=== PATIENT | male | born 1940 | race Caucasian/White ===

== ENCOUNTER 2020-04-12 09:44 | Outpatient (CLI) | payer MEDICARE, OTHER ==
--- NOTE | 2020-04-12 16:59 | MRI ---
MRI OF THE PROSTATE WITHOUT AND WITH CONTRAST: History: Elevated PSA. Technique: Multiplanar, multisequence MRI images were obtained of the prostate without and with IV co ntrast. FINDINGS: There is moderate hypertrophy of the central gland consistent with BPH. Prostate volume is estimated at 109 ml. No suspicious low T2 signal lesions are seen in the prostate. No restricted diffusion or low signal s een on the ACD map in the peripheral zone of the prostate. The seminal vesicles are intact. The neurovascular bundles are intact. No pelvic adenopathy is apprec iated. There is scattered diverticula in the colon. There is a low signal intensity filling defect in the posterior aspect of the urinary bladder measuring 10 mm in greatest size which may represent a b ladder calcification. No mural signal abnormality is present. IMPRESSION: 1. PIRADS category 2 - low likelihood of that a clinically significant cancer is present. 2. Likely bladder calcification. 3. Diverticulosis. POS: EAA
== END 2020-04-12 09:45 | disposition home or self-care (01) ==
LOC: TBSIIMAG 09:44
PROVIDERS: ATTEND Urology
DX: R97.20 Elevated prostate specific antigen [PSA] (principal); K57.30 Diverticulosis of large intestine without perforation or abscess without bleeding
CPT/HCPCS: 72197; 82565

== ENCOUNTER 2020-05-16 06:16 | Outpatient (CLI) | payer MEDICARE, OTHER ==
[2020-05-16 10:38] LABS: Bilirubin Neg (Negative); Blood, Urine Negative (Negative); Clarity Clear (Clear); Glucose, Urine (Dipstick) Normal (Negative); Ketone, Urine 5 mg/dL (Negative); Leukocyte Negative (Negative); Nitrite Negative (Negative); Protein, Urine (Dipstick) Negative (Neg-Trace); Specific Gravity, Urine 1.025 (1.002-1.036); Urobilinogen Normal mg/dL (Less than 2)
[2020-05-16 10:40] LABS: Hemoglobin 17.4 g/dL (14.0-18.0); Mean Corpuscular HGB CONC 34.5 G/DL (32.0-36.0); Mean Corpuscular Hemoglobin 32.4 PG (27.0-33.0); Mean Corpuscular Volume 93.9 fl (80.0-100.0); Mean Platelet Volume 9.7 fl (7.4-10.4); Platelet Count 205 10x3/uL (130-400); RBC Distribution Width 12.5 % (11.5-14.5); Red Blood Cell (RBC) Count 5.37 10x6/uL (4.40-5.80); White Blood Cell (WBC) Count 4.1 10x3/uL (4.5-11.0)
[2020-05-16 11:05] LABS: PTT 29.3 sec (22.0-33.0); Prothrombin Time 10.8 sec (9.5-12.1)
[2020-05-16 11:21] LABS: Bacteria/HPF Rare-Few HPF (None Seen); Mucous/LPF 2+ LPF (<2+); RBC/HPF 0-3 HPF (0-3); Squamous Epithelial 0-3 HPF (0-3); WBC/HPF 0-3 HPF (0-3)
[2020-05-16 11:29] LABS: Anion Gap 14 mmol/L (10-20); BUN (Urea Nitrogen) 20 mg/dL (8.4-25.7); Calc. Creatinine Clearance 0 mL/min (70-130); Calcium 9.1 mg/dL (7.8-10.44); Carbon Dioxide 26 mmol/L (23-31); Chloride 103 mmol/L (98-107); Estimated GFR-MDRD 59; Glucose 99 mg/dL (83-110); Potassium 4.6 mmol/L (3.5-5.1); Sodium 138 mmol/L (136-145)
[2020-05-17 14:42] LABS: SARS-CoV-2 MS2 Positive; SARS-CoV-2 N Gene Negative; SARS-CoV-2 S Gene Negative; SARS-CoV-2 by NAA Not Detected (NotDetected); SARS-CoV-2 orf1ab Negative
== END 2020-05-16 06:17 | disposition home or self-care (01) ==
LOC: LABBT 06:16
PROVIDERS: ATTEND Urology
DX: Z01.812 Encounter for preprocedural laboratory examination (principal); N21.0 Calculus in bladder; Z20.828 Contact with and (suspected) exposure to other viral communicable diseases
CPT/HCPCS: 80048; 81001; 85027; 85610; 85730; 87086; U0003; 87635

== ENCOUNTER 2020-05-21 06:04 | Day surgery (SDC) | payer MEDICARE ==
[2020-05-18 13:57] VITALS: BMI 25.3
[2020-05-21] MEDS ORDERED: Fentanyl 100 MCG/2 ML VIAL ONE (06:32)
[2020-05-21] MEDS ORDERED: cefTRIAXone\\ROCEPHIN 2 GM VIAL ONE (06:41)
[2020-05-21] MEDS ORDERED: Sodium Chloride 0.9% 100 ML ONE (06:41)
--- NOTE | 2020-05-21 08:50 | OP ---
DATE OF PROCEDURE: 05/21/2020 PREOPERATIVE DIAGNOSES: Bladder stone. POSTOPERATIVE DIAGNOSIS: Bladder stone. PROCEDURES PERFORMED: 1. Cystoscopy. 2. Laser lithotripsy. 3. Ellik evacuation. ANESTHETIC: General. ESTIMATED BLOOD LOSS: Less than 50. DRAINS PLACED: An 18-Divehi Kuo catheter with 15 mL in the balloon, passed under bladder stone pieces. DESCRIPTION OF PROCEDURE: This is a 79-year-old white male with a large Jackstone in the bladder. He is coming in for laser lithotripsy of a possible stone retrieval. He received IV Rocephin. Lab work was all normal. COVID test was negative. After obtaining written and verbal consent from the patient, he was taken to the operating suite. He was placed in supine position on the treatment table. PlexiPulses were placed on his lower extremities and turned on. He was given a general anesthetic and oral obturator intubation. He was placed in the dorsal lithotomy position. He was sterilely prepped and draped. Cystoscopy was performed with a 22-Divehi sheath, this was well lubricated, passed under direct vision through the male urethra into the urinary bladder with aid of a 30-degree lens, a video camera and monitor. The bladder was examined. The stone was easily visualized. A holmium laser fiber was brought in and used to try to break up the stone as much as we could to disintegrate and leave a few fragments as possible. Once this had been completed and the size of the remaining fragments appeared small enough to Ellik out, we Ellik'd them out. We then reinspected and found no significant bladder stone fragments remaining. At this point, instruments were removed. A Kuo catheter was placed and balloon inflated and hand irrigated with slight pink, but was clear and draining well, sucked up to a leg bag. He was taken out of the dorsal lithotomy position, awakened, extubated, and taken by stretcher to recovery room. Job ID: [id number]
[2020-05-21] MEDS ORDERED: PROPOFOL 200 MG/20 ML VIAL ONE (12:10)
[2020-05-21] MEDS ORDERED: Ondansetron PF 4 MG/2 ML Vial ONE (12:10)
[2020-05-21] MEDS ORDERED: Lidocaine 1% PF 5 ML VIAL ONE (12:10)
== END 2020-05-21 10:16 | disposition home or self-care (01) ==
LOC: SDC 06:04
PROVIDERS: ATTEND Urology
PROC: 0TCB8ZZ Extirpation of Matter from Bladder, Via Natural or Artificial Opening Endoscopic (ICD-10-PCS; principal; 2020-05-21)
DX: N21.0 Calculus in bladder (principal); M19.90 Unspecified osteoarthritis, unspecified site; Z88.5 Allergy status to narcotic agent; Z91.041 Radiographic dye allergy status; Z90.5 Acquired absence of kidney
CPT/HCPCS: 82365; 88300; J0696; J2405; J2704; J3010; J3490